=== PATIENT | female | born 1980 | race Caucasian/White ===

== ENCOUNTER 2017-10-07 11:51 | Emergency (ER) | payer MEDICAID ==
[2017-10-07] MEDS ORDERED: LORazepam 2 MG/ML SDV IVPUSH STA (12:23)
--- NOTE | 2017-10-07 12:23 | EDM.PDOC ---
ED HPI GENERAL MEDICAL PROBLEM - General Chief Complaint: Behavioral/Psych Stated Complaint: WEAK ARM TINGLING PAIN BETWEEN SHOULDERS Time Seen by Provider: 10/07/17 12:04 Source of Information: Reports: Patient History Limitations: Reports: No Limitations - History of Present Illness INITIAL COMMENTS - FREE TEXT/NARRATIVE: The patient states that she and her family are on vacation, currently on the way back home to [place]. She states that she developed left arm pain and numbness, a tingling sensation all over, nausea, dizziness and lightheadedness, indigestion, slight shortness of breath, and the sensation of walking on rubber legs, and a general feeling of anxiety around 11:30. No recent fever or chills. No emesis. No throat tightness or difficulty swallowing. No chest pain. No abdominal pain. The patient has chronic alternating constipation and diarrhea. No prior similar constellation of symptoms. The patient's PCP is in [place]. Treatments [employer]: Reports: Other (see below) Other Treatments [employer]: excedrin xs Left Arm Pain Score (Numeric/FACES): 2 - Related Data Allergies Allergy/AdvReac Type Severity Reaction Status Date / Time amoxicillin Allergy Hives Verified 10/07/17 12:04 Penicillins Allergy Hives Verified 10/07/17 12:04 Home Meds: Home Meds . [No Known Home Meds] 10/07/17 [History] Past Medical History Endocrine/Metabolic History: Reports: Obesity/BMI 30+ - Past Surgical History GI Surgical History: Reports: Cholecystectomy Female Surgical History: Reports: Section (x 1), D&C (x 2), Tubal Ligation Social & Family History - Tobacco Use Smoking Status *Q: Former Smoker Packs/Tins Daily: 1 Month/Year Tobacco Last Used: Quit Feb 2017 - Caffeine Use Caffeine Use: Reports: Coffee, Soda, Tea - Alcohol Use Alcohol Use History: Yes Alcohol Use Frequency: Socially - Recreational Drug Use Recreational Drug Use: No - Living Situation & Occupation Living situation: Reports: , with Family (3 kids, 1 granddaughter) Occupation: Employed (Ownes a childcare center) ED ROS GENERAL - Review of Systems Review Of Systems: ROS reveals no pertinent complaints other than HPI. ED EXAM, GENERAL - Physical Exam Exam: See Below Exam Limited By: No Limitations General Appearance: Alert, WD/WN, No Apparent Distress, Anxious Eye Exam: Bilateral Eye: EOMI, Normal Inspection, PERRL Ears: Normal External Exam, Normal Canal, Hearing Grossly Normal, Normal TMs Nose: Normal Inspection, Normal Mucosa, No Blood Throat/Mouth: Normal Inspection, Normal Lips, Normal Teeth, Normal Gums, Normal Oropharynx, Normal Voice, No Airway Compromise Head: Atraumatic, Normocephalic Neck: Normal Inspection, Supple, Non-Tender, Full Range of Motion. No: Lymphadenopathy (L), Lymphadenopathy (R) Respiratory/Chest: No Respiratory Distress, Lungs Clear, Normal Breath Sounds, No Accessory Muscle Use Cardiovascular: Normal Peripheral Pulses, Regular Rate, Rhythm, No Edema, No Gallop, No JVD, No Murmur, No Rub Peripheral Pulses: 4+: Radial (L), Radial (R) GI/Abdominal: Normal Bowel Sounds, Soft, Non-Tender, No Organomegaly, No Distention, No Abnormal Bruit, No Mass, Other (Obese) (Female) Exam: Deferred Rectal (Female) Exam: Deferred Back Exam: Normal Inspection, Full Range of Motion, NT Extremities: Normal Inspection, Normal Range of Motion, No Pedal Edema, Normal Capillary Refill Neurological: Alert, Oriented, CN II-XII Intact, Normal Cognition, No Motor/ Sensory Deficits Psychiatric: Anxious Skin Exam: Warm, Dry, Intact, Normal Color, No Rash EKG INTERPRETATION EKG Date: 10/07/17 Time: 13:11 Rhythm: NSR Rate (Beats/Min): 61 [place]: Normal P-Wave: Present QRS: Normal ST-T: Normal QT: Normal Comparison: NA - No Prior EKG Course - Vital Signs Last Recorded V/S: Last Vital Signs Temp 36.2 C 10/07/17 12:03 Pulse 74 10/07/17 12:03 Resp 20 10/07/17 12:03 BP 149/87 H 10/07/17 12:03 Pulse Ox 100 10/07/17 12:03 Orthostatic Blood Pressure [ 109/71 Standing] Orthostatic Blood Pressure [ 120/70 Sitting] Orthostatic Blood Pressure [ 116/68 Supine] - Orders/Labs/Meds Labs: Laboratory Tests 10/07/17 10/07/17 10/07/17 Range/Units 12:21 12:36 12:36 WBC 9.11 (3.98-10.04) K/mm3 RBC 5.10 (3.98-5.22) M/mm3 Hgb 14.1 (11.2-15.7) gm/L Hct 42.9 (34.1-44.9) % MCV 84.1 (79.4-94.8) fl MCH 27.6 (25.6-32.2) pg MCHC 32.9 (32.2-35.5) g/dl RDW Std Deviation 46.0 (36.4-46.3) fL Plt Count 251 (182-369) K/mm3 MPV 9.8 (9.4-12.3) fl Neutrophils % (Manual) 58 (40-60) % Band Neutrophils % 0 (0-10) % Lymphocytes % (Manual) 32 (20-40) % Atypical Lymphs % 0 % Monocytes % (Manual) 8 (2-10) % Eosinophils % (Manual) 1 (0.7-5.8) % Basophils % (Manual) 1 (0.1-1.2) Platelet Estimate Adequate RBC Morph Comment Normal PT 9.5 (9.5-12.1) SECONDS INR < 0.93 APTT 27 (24-31) SECONDS D-Dimer, Quantitative 0.45 (0.19-0.50) mg/L Puncture Site Lt radial ABG pH 7.48 H (7.35-7.45) ABG pCO2 31.0 L (35.0-45.0) mmHg ABG pO2 107.0 H (80.0-100.0) mmHg ABG HCO3 22.8 (22.0-26.0) meq/L ABG O2 Saturation 98.8 H (96.0-97.0) % ABG Base Excess 0.5 (-2-2.0) Arun Test Positive O2 Delivery Device Room air Sodium (136-145) mEq/L Potassium (3.5-5.1) mEq/L Chloride (98-107) mEq/L Carbon Dioxide (21-32) mEq/L Anion Gap (5-15) BUN (7-18) mg/dL Creatinine (0.55-1.02) mg/dL Est Cr Clr Drug Dosing mL/min Estimated GFR (MDRD) (>60) mL/min BUN/Creatinine Ratio (14-18) Glucose (74-106) mg/dL Calcium (8.5-10.1) mg/dL Magnesium (1.8-2.4) mg/dl Total Bilirubin (0.2-1.0) mg/dL AST (15-37) U/L ALT (14-59) U/L Alkaline Phosphatase (46-116) U/L Troponin I (0.00-0.056) ng/mL Total Protein (6.4-8.2) g/dl Albumin (3.4-5.0) g/dl Globulin gm/dL Albumin/Globulin Ratio (1-2) TSH 3rd Generation (0.358-3.74) uIU/mL Urine Color (Yellow) Urine Appearance (Clear) Urine pH (5.0-8.0) Ur Specific [place] (1.005-1.030) Urine Protein (Negative) Urine Glucose (UA) (Negative) Urine Ketones (Negative) Urine Occult Blood (Negative) Urine Nitrite (Negative) Urine Bilirubin (Negative) Urine Urobilinogen (0.2-1.0) Ur Leukocyte Esterase (Negative) Urine RBC (0-5) /hpf Urine WBC (0-5) /hpf Ur Epithelial Cells (0-5) /hpf Urine Bacteria (FEW) /hpf Urine Mucus (FEW) /hpf Urine HCG, Qual (NEGATIVE) 10/07/17 10/07/17 10/07/17 Range/Units 12:36 12:41 12:41 WBC (3.98-10.04) K/mm3 RBC (3.98-5.22) M/mm3 Hgb (11.2-15.7) gm/L Hct (34.1-44.9) % MCV (79.4-94.8) fl MCH (25.6-32.2) pg MCHC (32.2-35.5) g/dl RDW Std Deviation (36.4-46.3) fL Plt Count (182-369) K/mm3 MPV (9.4-12.3) fl Neutrophils % (Manual) (40-60) % Band Neutrophils % (0-10) % Lymphocytes % (Manual) (20-40) % Atypical Lymphs % % Monocytes % (Manual) (2-10) % Eosinophils % (Manual) (0.7-5.8) % Basophils % (Manual) (0.1-1.2) Platelet Estimate RBC Morph Comment PT (9.5-12.1) SECONDS INR APTT (24-31) SECONDS D-Dimer, Quantitative (0.19-0.50) mg/L Puncture Site ABG pH (7.35-7.45) ABG pCO2 (35.0-45.0) mmHg ABG pO2 (80.0-100.0) mmHg ABG HCO3 (22.0-26.0) meq/L ABG O2 Saturation (96.0-97.0) % ABG Base Excess (-2-2.0) Arun Test O2 Delivery Device Sodium 137 (136-145) mEq/L Potassium 4.5 (3.5-5.1) mEq/L Chloride 103 (98-107) mEq/L Carbon Dioxide 26 (21-32) mEq/L Anion Gap 12.5 (5-15) BUN 12 (7-18) mg/dL Creatinine 0.9 (0.55-1.02) mg/dL Est Cr Clr Drug Dosing 76.26 mL/min Estimated GFR (MDRD) > 60 (>60) mL/min BUN/Creatinine Ratio 13.3 L (14-18) Glucose 115 H (74-106) mg/dL Calcium 9.5 (8.5-10.1) mg/dL Magnesium 2.0 (1.8-2.4) mg/dl Total Bilirubin 0.2 (0.2-1.0) mg/dL AST 15 (15-37) U/L ALT 28 (14-59) U/L Alkaline Phosphatase 75 (46-116) U/L Troponin I < 0.017 (0.00-0.056) ng/mL Total Protein 7.8 (6.4-8.2) g/dl Albumin 3.8 (3.4-5.0) g/dl Globulin 4.0 gm/dL Albumin/Globulin Ratio 1.0 (1-2) TSH 3rd Generation 2.206 (0.358-3.74) uIU/mL Urine Color Yellow (Yellow) Urine Appearance Clear (Clear) Urine pH 7.0 (5.0-8.0) Ur Specific [place] 1.015 (1.005-1.030) Urine Protein Negative (Negative) Urine Glucose (UA) Negative (Negative) Urine Ketones Negative (Negative) Urine Occult Blood 1+ H (Negative) Urine Nitrite Negative (Negative) Urine Bilirubin Negative (Negative) Urine Urobilinogen 0.2 (0.2-1.0) Ur Leukocyte Esterase Negative (Negative) Urine RBC 0-5 (0-5) /hpf Urine WBC Not seen (0-5) /hpf Ur Epithelial Cells 5-10 H (0-5) /hpf Urine Bacteria Not seen (FEW) /hpf Urine Mucus Not seen (FEW) /hpf Urine HCG, Qual Negative (NEGATIVE) Meds: Medications Discontinued Medications Generic Name Dose Route Start Last Admin Trade Name Lasha PRN Reason Stop Dose Admin Lorazepam 1 mg 10/07/17 12:23 Ativan IVPUSH 10/07/17 12:24 ONETIME STA Lorazepam 1 mg 10/07/17 13:37 10/07/17 13:42 Ativan PO 10/07/17 13:38 1 mg ONETIME ONE Administration - Re-Assessments/Exams Free Text/Narrative Re-Assessment/Exam: 10/07/17 12:22 The patient is aware that her symptoms are most likely due to an anxiety attack , however, she is frightened that it could be something else, therefore would like us to rule out other causes of hyperventilation. In the meantime, I will order some IV Ativan to make her feel better while we are doing this workup. 10/07/17 12:59 2 view chest radiograph appears to be grossly normal. Cardiac silhouette is within normal limits. No pulmonary vascular congestion. No pleural effusions. No focal infiltrate. No pneumothorax. Formal read per the radiologist pending. 10/07/17 13:50 The patient is not orthostatic. 10/07/17 14:31 Test results discussed with the patient and her family. She is feeling much better after oral Ativan. Today's workup is entirely unremarkable, with the exception that her ABG confirmed a significant acute respiratory alkalosis. Medical causes of hyperventilation has been ruled out, therefore this patient's hyperventilation appears be due to anxiety. Since this is the first and only time that this is ever happened to the patient, no further treatment is necessary, however, if this recurs, then I am recommending that she follow-up with her PCP back home in [place], to discuss treatment options. Departure - Departure Time of Disposition: 14:32 Disposition: Home, Self-Care 01 Condition: Good Clinical Impression: Hyperventilation syndrome - Discharge Information Instructions: Hyperventilation Referrals: PCP,None [Primary Care Provider] - Forms: ED Department Discharge Additional Instructions: You were seen in the emergency room for tingling all over, nausea, dizziness, lightheadedness, slight shortness of breath, indigestion, and the sensation of walking on rubber legs Workup in the ER included blood work, and arterial blood gas, a urinalysis, a chest x-ray, positional blood pressure checks, and an ECG. Your ABG confirm that you are hyperventilating. Hyperventilation is usually caused by anxiety, but can be caused by medical conditions, such as hypocalcemia, hypoglycemia, hyperthyroidism, liver failure, severe anemia, sepsis, acute coronary event, pneumothorax, pneumonia, dysrhythmia, pulmonary embolus, congestive heart failure, and even . These have been ruled out in your case. Since this is the first and only time that this has happened to, no further treatment is required, however, if this begins to recur frequently, please follow-up with your PCP in [place] to discuss treatment options.
[2017-10-07] MEDS ORDERED: LORazepam 1 MG Tab PO ONE (13:37)
--- NOTE | 2017-10-10 09:18 | CR ---
Chest: Two views of the chest were obtained. Comparison: No prior chest x-ray. Minimal atelectasis within the left lung base is seen. Lungs otherwise are clear. Heart size and mediastinum are normal. Bony structures appear within normal limits. Impression: 1. Slight left basilar atelectasis. Nothing acute is seen. Diagnostic code #2
== END 2017-10-07 15:07 | disposition home or self-care (01) ==
LOC: JD.ED 11:51
DX: F45.8 Other somatoform disorders (principal); Z87.891 Personal history of nicotine dependence; Z88.1 Allergy status to other antibiotic agents; Z88.0 Allergy status to penicillin
CPT/HCPCS: 36415; 36600; 71046; 80053; 81001; 81025; 82803; 83735; 84443; 84484; 85007; 85027; 85379; 85610; 85730; 93005; 99284; A9270